=== PATIENT | female | born 1935 | race American Indian/Alaskan Native ===

== ENCOUNTER 2020-05-31 09:09 | Emergency (ER) | payer OTHER, MEDICARE ==
--- NOTE | 2020-05-31 10:07 | Emergency Department Report ---
ED CPR HPI - General Chief Complaint: Cardiac Arrest/CPR Stated Complaint: CARDIAC ARREST Time Seen by Provider: 05/31/20 09:13 Source: family, EMS (Verbal report received from emergency medical services. EMS documentation not available at time of chart dictation ), RN notes reviewed Mode of arrival: Stretcher Limitations: Altered Mental Status, Physical Limitation - History of Present Illness Initial Comments: The patient is an 85-year-old female. She is brought to the hospital by emergency medical services as out of hospital nontraumatic cardiac arrest. As per collateral information obtained from her daughter, patient was found in bed at home, "not really breathing well", attached to portable oxygen, her daughter believes that oxygen was in the tank. The patient was not responsive, and therefore emergency medical services were activated. EMS states that upon their arrival, the patient was apneic, and pulseless. The patient had a Richard airway placed, and high-quality CPR was initiated. Patient did not have a shockable rhythm at any time. EMS further indicates the patient received 4 rounds of epinephrine. She never developed a shockable rhythm. Upon arrival to this emergency room, the patient is pulseless, receiving CPR, with a Richard airway in place. Standard ACLS interventions are continued. Unfortunately, pulses are not obtained. Given advanced age, obvious presence of multiple medical comorbidities, lack of pupillary reflex to light, lack of shockable rhythm, prolonged period of pulselessness, and medical futility, resuscitation efforts are subsequently terminated. [facility] was informed, and patient's daughter and family was subsequently informed. MD Complaint: found unresponsive AED Applied by Bystander/Order To Delivery Supervisor: No Initial Findings in the Field: no pulse, PEA ROSC in the Field: No Associated Injuries: No Treatments Prior to Arrival: other airway device, chest compressions, epinephrine mgs # (4) - Related Data Home Medications Medication Instructions Recorded Confirmed Last Taken Losartan [Cozaar] 100 mg PO QDAY 02/13/14 03/09/15 02/26/15 NIFEdipine XL [Procardia Xl] 60 mg PO Q12HR 02/13/14 03/09/15 02/26/15 Omeprazole Magnesium [PriLOSEC Otc] 20 mg PO BID 02/13/14 03/09/15 02/26/15 carvediloL [Coreg] 12.5 mg PO BID 02/13/14 03/09/15 02/26/15 Acetaminophen [Mapap Arthritis 650 mg PO Q8HR PRN 03/09/15 03/09/15 Unknown Pain] Doxycycline Hyclate [Doxycycline 100 mg PO BID 03/09/15 03/09/15 Unknown Hyclate CAP] Famotidine [Pepcid] 20 mg PO BID 03/09/15 03/09/15 Unknown Previous Rx's Medication Instructions Recorded Last Taken Type Acetaminophen [Non-Aspirin Extra 500 mg PO Q6HR PRN #30 tablet 05/29/20 Unknown Rx Strength] Ibuprofen [Motrin] 200 mg PO Q6H PRN #15 tablet 05/29/20 Unknown Rx Allergies Allergy/AdvReac Type Severity Reaction Status Date / Time codeine Allergy Mild Headache Verified 05/31/20 09:13 ED Review of Systems ROS: Stated complaint: CARDIAC ARREST Other details as noted in HPI Comment: Unobtainable due to pts medical conditions ED Past Medical Hx - Past Medical History Hx Hypertension: Yes (DR JESSICA MAXWELL/PCP) Hx Deep Vein Thrombosis: No Hx GERD: Yes Hx Arthritis: Yes Hx Asthma: Yes Hx HIV: No - Surgical History Hx Pacemaker: No Hx Internal Defibrillator: No Hx Cholecystectomy: Yes (2010) Additional Surgical History: Right and Left knee replacement. - Social History Smoking Status: Never Smoker Substance Use Type: None - Medications Home Medications: Home Medications Medication Instructions Recorded Confirmed Last Taken Type Losartan [Cozaar] 100 mg PO QDAY 02/13/14 03/09/15 02/26/15 History NIFEdipine XL [Procardia Xl] 60 mg PO Q12HR 02/13/14 03/09/15 02/26/15 History Omeprazole Magnesium [PriLOSEC Otc] 20 mg PO BID 02/13/14 03/09/15 02/26/15 History carvediloL [Coreg] 12.5 mg PO BID 02/13/14 03/09/15 02/26/15 History Acetaminophen [Mapap Arthritis 650 mg PO Q8HR PRN 03/09/15 03/09/15 Unknown History Pain] Doxycycline Hyclate [Doxycycline 100 mg PO BID 03/09/15 03/09/15 Unknown History Hyclate CAP] Famotidine [Pepcid] 20 mg PO BID 03/09/15 03/09/15 Unknown History Acetaminophen [Non-Aspirin Extra 500 mg PO Q6HR PRN #30 tablet 05/29/20 Unknown Rx Strength] Ibuprofen [Motrin] 200 mg PO Q6H PRN #15 tablet 05/29/20 Unknown Rx ED Physical Exam - General Limitations: Altered Mental Status, Physical Limitation, Other (Intubated, GCS of 3) General appearance: obese - Head Head exam: Present: atraumatic, normocephalic - Eye Eye exam: Present: other (Pupils midpoint and do not react to light) - ENT ENT exam: Present: other (Richard airway noted in the) - Neck Neck exam: Present: normal inspection - Respiratory Respiratory exam: Present: other (Patient is apnea). Absent: respiratory distress - Cardiovascular Cardiovascular Exam: Absent: regular rate (The patient is pulseless), normal rhythm, systolic murmur, diastolic murmur, rubs, gallop - GI/Abdominal GI/Abdominal exam: Present: soft - Extremities Exam Extremities exam: Present: pedal edema - Back Exam Back exam: Present: normal inspection - Neurological Exam Neurological exam: Present: other (GCS of 3) - Skin Skin exam: Present: warm ED Medical Decision Making - Medical Decision Making Differential diagnosis, including but not limited to: Oxygen tank malfunction, COPD, CHF, pulmonary embolism Critical care attestation.: If time is entered above; I have spent that time in minutes in the direct care of this critically ill patient, excluding procedure time. ED Disposition Clinical Impression: Cardiac arrest Disposition: DC-20 Is pt being admited?: No Does the pt Need Aspirin: No Condition: Undetermined Referrals: MATEO DUBOSE MD [Primary Care Provider] - 3-5 Days
== END 2020-05-31 13:47 ==
LOC: ED 09:09
DX: I46.9 Cardiac arrest, cause unspecified (principal); I10 Essential (primary) hypertension; K21.9 Gastro-esophageal reflux disease without esophagitis; M19.90 Unspecified osteoarthritis, unspecified site; J45.909 Unspecified asthma, uncomplicated; Z79.899 Other long term (current) drug therapy; Z90.49 Acquired absence of other specified parts of digestive tract; Z98.890 Other specified postprocedural states; Z88.6 Allergy status to analgesic agent
CPT/HCPCS: 92950